=== PATIENT | male | born 1995 | race Two or more races ===

== ENCOUNTER 2021-08-03 19:39 | Emergency (ER) | payer OTHER ==
[~2021-08-03] VITALS: Ht 165.1 cm; Wt 59.0 kg
[2021-08-03] MEDS ORDERED: KETO10TA2 PO (23:29)
== END 2021-08-04 00:09 | disposition home or self-care (01) ==
LOC: ER 19:39
DX: S92.352A Displaced fracture of fifth metatarsal bone, left foot, initial encounter for closed fracture (principal); X58.XXXA Exposure to other specified factors, initial encounter; Y93.89 Activity, other specified; Y92.89 Other specified places as the place of occurrence of the external cause; Y99.8 Other external cause status

== ENCOUNTER 2021-11-19 14:12 | Outpatient (CLI) | payer OTHER ==
[~2021-11-19 14:12] MED LIST: KETO10TA2 PO
== END 2021-11-19 14:29 | disposition home or self-care (01) ==
LOC: RAD 14:12
PROVIDERS: ATTEND General Practice
DX: M25.572 Pain in left ankle and joints of left foot (principal); S96.90 Unspecified injury of unspecified muscle and tendon at ankle and foot level; M54.50 Low back pain, unspecified

== ENCOUNTER → 2025-04-19 | Emergency (ER) | payer OTHER ==
[~2025-04-19] VITALS: Ht 162.6 cm; Wt 59.0 kg
[~2025-04-19] MED LIST changes: +BISMUTH SUBSALICYLATE 262 MG/15 ML BLIST.PACK PO STA; +BISMUTH SUBSALICYLATE 524 MG/30 ML BLIST.PACK PO ONE; +FAMOTIDINE/PF 20 MG/2 ML VIAL IV PUSH STA; +FAMOTIDINE/PF 20 MG/2 ML VIAL ONE; +SIMETHICONE 125 MG CAPSULE PO STA
[2025-04-19 19:48] VITALS: BP 110/68; O2SAT 96
[2025-04-19 20:57] LABS: ALT/SGPT 27.0 U/L (12-78); AST/SGOT 16.0 U/L (15-37); BILIRUBIN TOTAL 0.28 mg/dL (0.3-1.2); BUN CREA RATIO 13.0 (7.0-25.0); CREATININE SERUM 1.16 mg/dL (0.70-1.30); GFR 73.43; GLOBULINA 3.0 G/DL (2.4-3.5); GLUCOSE FASTING 101.0 mg/dL (65-100); OSMOLALITY SERUM 282.0 MOSM/KG (275-295)
[2025-04-19 21:01] LABS: BASO % 0.7 % (0.1-1.2); EOS # 0.23 (0.04-0.54); EOS % 2.1 % (0.7-7.0); LYMPH # 1.17 (1.18-3.74); LYMPH % 10.5 % (19.3-53.1); MEAN PLATELET VOLUME 9.90 fl (9.4-12.4); MONO # 0.79 (0.24-0.82); MONO % 7.1 % (4.7-12.5); NEUT # 8.84 (1.56-6.13); NEUT % 79.4 % (34.0-71.1); RED CELL DISTRIBUTION WIDTH 12.0 % (11.6-14.4)
== END | disposition home or self-care (01) ==
LOC: ER 18:13
PROVIDERS: General Practice
DX: K21.9 Gastro-esophageal reflux disease without esophagitis (principal)